=== PATIENT | female | born 2000 | race Caucasian/White ===

== ENCOUNTER → 2020-06-25 | Outpatient (CLI) | payer OTHER ==
--- NOTE | 2020-06-25 11:45 | EEG ---
DATE OF SERVICE: 06/25/2020 ELECTROENCEPHALOGRAM REPORT EEG NUMBER: OBJECTIVE: The patient is a 19-year-old female with a history of seizures, her last seizure was in 2013. DESCRIPTION: This is a digital study. Electrodes are placed according to international 10-20 system. Bipolar and referential montages are available. Activation procedures typically include hyperventilation and intermittent photic stimulation. INTERPRETATION: The waking background consists of 9-10 Hz, 50-100 microvolt activity, symmetrically distributed over parietooccipital regions and reactive to eye opening. Hyperventilation and intermittent photic stimulation are noncontributory. Stage 1 sleep is achieved with normal electroencephalogram patterns. IMPRESSION: This electroencephalogram with the patient awake and asleep is within normal limits. All computer-identified abnormalities are reviewed and none are anything more than artifactual. There is no focal, paroxysmal, or epileptiform activity. Thank you for letting us help with the patient's care. EDUARDO GIVENS MD DR: CHASE/nick JOB#: [id number] / [id number]
== END ==
LOC: RT 09:10
PROVIDERS: ATTEND Psychiatry & Neurology Neurology with Special Qualifications in Child Neurology
DX: R06.4 Hyperventilation (principal); Z86.69 Personal history of other diseases of the nervous system and sense organs
CPT/HCPCS: 95816